=== PATIENT | female | born 1995 | race American Indian/Alaskan Native ===

== ENCOUNTER 2018-06-11 01:06 | Inpatient (IN) | payer OTHER ==
[2018-06-11] MEDS ORDERED: BRETHINE SUB-Q PRN (01:52)
[2018-06-11] MEDS ORDERED: XYLOCAINE 2% INFILTRATI ONE (01:52)
--- NOTE | 2018-06-11 01:59 | History and Physical Report ---
History of Present Illness Date of examination: 06/11/18 Date of admission: 06/11/18 01:41 Chief complaint: at 41 weeks, 1 day gestation. Active labor. History of present illness: 23 year old presents to L&D with complaint of contractions since yes terday. Patient denies vaginal bleeding or leaking of fluid. Patient states she has received care at [facility]; no records are available. Patient denies any complications with this . She states her EDC is 06/03/18. No labs are available. labs drawn at admission. 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 denies: smoking, alcohol abuse, prescription drug abuse, IV drug use - Obstetrical History Expected Date of Delivery: 06/03/18 Actual Gestation: 41 Week(s) 1 Day(s) : 4 Para: 2 Hx # Term Pregnancies: 3 Number of Pregnancies: 0 Spontaneous Abortions: 1 Induced : 0 Number of Living Children: 2 Medications and Allergies Allergies Allergy/AdvReac Type Severity Reaction Status Date / Time No Known Allergies Allergy Verified 06/11/18 01:27 Active Meds: Active Medications Ephedrine Sulfate (Ephedrine Sulfate) 10 mg IV Q2M PRN PRN Reason: Hypotension Ampicillin Sodium (Polycillin/Ns 2 Gm/100 Ml) 2 gm in 100 mls @ 100 mls/hr IV ONCE ONE; Protocol Stop: 06/11/18 02:51 Lactated Ringer's (Lactated Ringers) 1,000 mls @ 125 mls/hr IV DIRECT ALANIS Oxytocin/Sodium Chloride (Pitocin/Ns 20 Unit/1000ml Drip) 20 units in 1,000 mls @ 125 mls/hr IV DIRECT ALANIS Ampicillin Sodium (Ampicillin/Ns 1 Gm/50 Ml) 1 gm in 50 mls @ 100 mls/hr IV Q4HR ALANIS; Protocol Lidocaine (Xylocaine 2%) 20 ml INFILTRATI ONCE ONE Stop: 06/11/18 01:53 Terbutaline Sulfate (Brethine) 0.25 mg SUB-Q ONCE PRN PRN Reason: Hyperstimulation/Hypertonicity Review of Systems All systems: negative (labor) - Vital Signs Vital signs: Vital Signs Pulse Pulse Ox 72 100 06/11/18 01:17 06/11/18 01:17 Temp Pulse Resp BP Pulse Ox 84 100 06/11/18 01:32 06/11/18 01:32 - Physical Exam Abdomen: Positive: normal appearance, soft. Negative: distention, tenderness, guarding, rigidity Genitourinary (Female): Positive: normal external genitalia, normal perenium. Negative: perineal/vulvar lesions (no lesions seen on careful exam with bright light upon admission) Vagina: Positive: normal moisture Uterus: Positive: enlarged Anus/Rectum: Positive: normal perianal skin Extremities: Positive: normal. Negative: tenderness, edema - Obstetrical FHR: category 2 Uterine Contraction Monitor Mode: External Cervical Dilatation: 7 Cervical Effacement Percentage: 95 station: -1 Uterine Contraction Pattern: Regular Uterine Contraction Intensity: Moderate Results All other labs normal. Assessment and Plan A: at 41 weeks, 1 day gestation. Active labor. GBS unknown. P: Admit. GBS prophylaxis. Epidural if desired. Draw labs.
[2018-06-11] MEDS ORDERED: AMPICILLIN/NS 2 GM/100 ML 2 GM/100 ML BAG IV ONE ×2 (02:00→02:05)
[2018-06-11] MEDS ORDERED: PITOCin/NS 20 UNIT/1000ML DRIP 20 UNITS/1,000 ML BAG IV SCH (02:00)
[2018-06-11] MEDS ORDERED: SUBLIMAZE IV ONE (02:20)
[2018-06-11] MEDS ORDERED: SUBLIMAZE ONE (02:22)
[2018-06-11] MEDS: LACTATED RINGERS 1,000 ML IV SCH ×2 (02:24→03:25)
[2018-06-11 02:28] LABS: Hematocrit 30.7 % (30.3-42.9); Hemoglobin 10.1 gm/dl (10.1-14.3); Mean Corpuscular HGB Conc 33 % (30-34); Mean Corpuscular Volume 85 fl (79-97); Platelet Count 177 K/mm3 (140-440); Red Blood Count 3.62 M/mm3 (3.65-5.03); Red Cell Distribution Width 14.9 % (13.2-15.2)
[2018-06-11 03:06] LABS: Hematocrit 30.3 % (30.3-42.9); Hemoglobin 9.9 gm/dl (10.1-14.3); Mean Corpuscular HGB Conc 33 % (30-34); Mean Corpuscular Volume 86 fl (79-97); Platelet Count 173 K/mm3 (140-440); Red Blood Count 3.53 M/mm3 (3.65-5.03); Red Cell Distribution Width 15.2 % (13.2-15.2)
[2018-06-11 03:36] LABS: Hepatitis C Virus Antibody Non-Reactive (NonReactive)
[2018-06-11] MEDS ORDERED: XYLOCAINE 2%/ EPI 1:200,000 INFILTRATI ONE (03:43)
[2018-06-11] MEDS ORDERED: NARCAN 2 MG/2 ML IV PRN (03:54)
--- NOTE | 2018-06-11 03:54 | Anesthesia Consultation ---
Anesthesia Consult and Med Hx - Airway Anesthetic Teeth Evaluation: Good ROM Head & Neck: Adequate Mental/Hyoid Distance: Adequate Mallampati Class: Class I Intubation Access Assessment: Good - Pulmonary Exam CTA: Yes - Cardiac Exam Cardiac Exam: RRR - Pre-Operative Health Status ASA Pre-Surgery Classification: ASA2 Proposed Anesthetic Plan: Epidural - Pulmonary Hx Asthma: No COPD: No Hx Pneumonia: No - Cardiovascular System Hx Hypertension: No - Central Nervous System Hx Seizures: No Hx Psychiatric Problems: No - Endocrine Hx Renal Disease: No Hx End Stage Renal Disease: No Hx Hypothyroidism: No Hx Hyperthyroidism: No - Hematic Hx Anemia: No Hx Sickle Cell Disease: No - Other Systems Hx Alcohol Use: No
--- NOTE | 2018-06-11 03:54 | Anesthesia Day of Surgery ---
Anesthesia Day of Surgery - Day of Surgery Patient Examined: Yes Patient H&P Reviewed: Yes Patient is NPO: Yes Beta Blockers: No Cardiac Clearance: No Pulmonary Clearance: No Baldemar's Test: N/A
[2018-06-11] MEDS ORDERED: fentaNYL-BUPIV 2 MCG/ML-0.125% 200 MCG/100 ML BAG EPIDURAL SCH (04:00)
[2018-06-11] MEDS ORDERED: NACL 0.9% 1000 ML 1,000 ML ONE (04:02)
--- NOTE | 2018-06-11 04:30 | Event Note ---
Date: 06/11/18 Patient came in to L&D in advanced active labor. Cervix is now completely dilated and station of head is 0. Patient is comfortable as she has an epidural. Patient received amnioinfusion for variable FHR decelerations noted with SROM. FHR baseline 120-125 with moderate variability and early FHR decelerations. Contractions every 2-3 minutes. Uterus palpates soft between contractions.
[2018-06-11] MEDS ORDERED: NACL 0.9% 1000 ML 1,000 ML VG SCH (05:00)
[2018-06-11] MEDS ORDERED: LANSINOH TP PRN (05:19)
--- NOTE | 2018-06-11 05:19 | Procedure Note ---
OB Delivery Note - Delivery Date of Delivery: 06/11/18 Surgeon: DIPAK LUND Estimated blood loss: other (250 cc) - Vaginal Delivery presentation: vertex Delivery position: OA Intrapartum events: shoulder dystocia Delivery induction: none Delivery monitor: external FHT, external uterine, internal FHT, internal uterine Route of delivery: Delivery cord: nuchal cord, 3 umbilical vessels Episiotomy: midline Delivery repair: vicryl Anesthesia: epidural Delivery comments: of liveborn male infant OA over 2nd degree episiotomy. Prolonged and variable FHR deceleration just before delivery; Dr. Ceron called to delivery to expedite delivery but patient pushed well and head delivered spontaneously. Tight nuchal cord times 1 and shoulder cord. Shoulder dystocia noted. Jamel position instituted; attempted to deliver posterior arm but was unable to reach. Dr. Ceron was present for delivery and delivered baby's anterior shoulder. Baby placed briefly on maternal abdomen and 3 vessel cord was double clamped and cut. Baby taken to radiant warmer and evaluated by NICU team. Apgars 7/8. Weight 8 lbs. 6 oz. Time of 04:52. Spontaneous delivery of intact placenta and membranes by hoover mechanism. EBL 250 ml. Pitocin to IV fluids after delivery of placenta. Fundus firm and midline. Vaginal sweep negative. 2nd degree episiotomy repaired with 2-0 vicryl. Sponge count correct. Mother and baby stable in birthing room.
[2018-06-11 05:26] LABS: Amphetamine Screen,Urine PRESUMPTIVE NEGATIVE; Benzodiazepines Screen,Urine PRESUMPTIVE NEGATIVE; Cannabinoid Screen,Urine PRESUMPTIVE NEGATIVE; Cocaine Screen,Urine PRESUMPTIVE NEGATIVE; Methadone Screen,Urine PRESUMPTIVE NEGATIVE; Opiate Screen,Urine PRESUMPTIVE NEGATIVE
[2018-06-11] MEDS: IBUPROFEN PO SCH ×3 (05:59→23:24)
[2018-06-11] MEDS ORDERED: AMPICILLIN/NS 1 GM/50 ML 1 GM/50 ML BAG IV SCH (06:00)
[2018-06-11] MEDS ORDERED: SODIUM CHLORIDE FLUSH SYRINGE 10 ML IV NR (06:00)
[2018-06-11] MEDS: NORCO 5/325 PO PRN ×2 (08:00→21:23)
[2018-06-11] MEDS: TUCKS PAD TP PRN (08:01)
[2018-06-11] MEDS ORDERED: DULCOLAX PR PRN (10:00)
[2018-06-11 17:33] LABS: Hematocrit 28.3 % (30.3-42.9); Hemoglobin 9.1 gm/dl (10.1-14.3)
[2018-06-11] MEDS: COLACE PO SCH (21:23)
[2018-06-11] MEDS ORDERED: MILK OF MAGNESIA PO PRN (22:00)
[2018-06-12] MEDS: NORCO 5/325 PO PRN (03:18)
[2018-06-12] MEDS: IBUPROFEN PO SCH ×4 (05:28→18:19)
--- NOTE | 2018-06-12 11:38 | Progress Note ---
Assessment and Plan A: day 1. Anemia. P: Supplement with iron. Anticipate discharge tomorrow. Subjective - Subjective Date of service: 06/12/18 Principal diagnosis: day 1 S/P Interval history: day 1 S/P . Doing well. Patient reports small amount of lochia. Voiding without difficulty, passing gas, ambulating well. Tolerating a regular diet without nausea or vomiting. Patient reports: appetite normal, voiding normally, pain well controlled, flatus, ambulating normally, no dizzy ambulation, no nauseated [place]: doing well Objective - Vital Signs Latest vital signs: Vital Signs Temp Pulse Resp BP Pulse Ox 06/12/18 08:10 97.7 F 69 18 111/72 99 06/12/18 03:18 18 06/12/18 00:00 98.7 F 67 18 111/78 06/11/18 21:23 18 06/11/18 20:00 98.7 F 61 16 101/78 06/11/18 16:30 98.4 F 81 19 104/61 Intake and Output 06/11/18 06/12/18 06/12/18 23:59 07:59 15:59 Intake Total 600 300 120 Balance 600 300 120 Intake: Oral 300 120 Intake, Free Water 300 300 Other: Total, Intake Amount 300 120 # Voids Indwelling Catheter 2 Void 3 - Exam Cardiovascular: Present: Regular rate, Normal S1, Normal S2 Lungs: Present: Clear to auscultation Abdomen: Present: normal appearance, soft. Absent: distention, tenderness, guarding, rigidity Uterus: Present: normal, firm, fundal height below umbilicus. Absent: bogginess, tenderness Extremities: Present: normal. Absent: tenderness, edema - Labs Labs: Abnormal lab results 06/11/18 Range/Units 16:58 Hgb 9.1 L (10.1-14.3) gm/dl Hct 28.3 L (30.3-42.9) %
[2018-06-12] MEDS ORDERED: FEOSOL PO ONE (12:00)
[2018-06-12] MEDS: COLACE PO SCH ×2 (12:50→22:47)
[2018-06-13] MEDS: IBUPROFEN PO SCH ×3 (00:20→12:21)
[2018-06-13] MEDS: TUCKS PAD TP PRN (06:01)
[2018-06-13] MEDS: NORCO 5/325 PO PRN (06:01)
--- NOTE | 2018-06-13 07:02 | Progress Note ---
Assessment and Plan A: day 2 S/P . Anemia. P: Discharge patient to home today. Discussed with patient discharge instructions and warning signs. Patient is to continue iron supplements at home. Advised patient to avoid intercourse, lifting, and heavy housework for 6 weeks. Advised patient to follow up at [facility] in 6 weeks for visit and contraception. Patient voiced understanding of instructions. Subjective - Subjective Date of service: 06/13/18 Principal diagnosis: day 2 S/P Interval history: day 2 S/P . Doing well. Patient reports small amount of lochia. Voiding without difficulty, passing gas, ambulating well. Tolerating a regular diet without nausea or vomiting. Patient has no complaints. Desires discharge today. Patient reports: appetite normal, voiding normally, pain well controlled, flatus, ambulating normally, no dizzy ambulation, no nauseated [place]: doing well Objective - Vital Signs Latest vital signs: Vital Signs Temp Pulse Resp BP BP Pulse Ox 06/13/18 01:01 97.8 F 62 18 115/72 100 06/12/18 15:45 97.9 F 77 18 123/73 99 06/12/18 08:10 97.7 F 69 18 111/72 99 Intake and Output 06/12/18 06/12/18 06/13/18 15:59 23:59 07:59 Intake Total 360 360 Balance 360 360 Intake: Oral 360 Intake, Free Water 360 Other: Total, Intake Amount 120 # Voids Indwelling Catheter 1 Void 1 2 - Exam Abdomen: Present: normal appearance, soft. Absent: distention, tenderness, guarding, rigidity Uterus: Present: normal, firm, fundal height below umbilicus. Absent: bogginess, tenderness Extremities: Present: normal. Absent: tenderness, edema
--- NOTE | 2018-06-13 07:04 | Discharge Summary ---
Providers - Providers Date of Admission: 06/11/18 01:41 Date of discharge: 06/13/18 Attending physician: DUTCH STEWART MD Primary care physician: DUTCH STEWART MD Hospitalization Reason for admission: active labor Delivery: Episiotomy: midline Other procedures: none complications: none Discharge diagnosis: IUP at term delivered baby: male Pertinent studies: Labs Hospital course: Normal hospital course Condition at discharge: Good Disposition: DC-01 TO HOME OR SELFCARE - Discharge Diagnoses (1) Term delivered Status: Acute Plan - Provider Discharge Summary Activity: routine, no sex for 6 weeks, no heavy lifting 4 weeks, no strenuous exercise Diet: routine Instructions: routine Additional instructions: Continue taking your iron supplements at home. Call your doctor immediately for: * Fever > 100.5 * Heavy vaginal bleeding ( >1 pad per hour) * Severe persistent headache * Shortness of breath * Reddened, hot, painful area to leg or breast - Follow up plan Follow up: DUTCH STEWART MD [Primary Care Provider] - 6 Weeks
[2018-06-13] MEDS: COLACE PO SCH (12:21)
[2018-06-13 12:42] VITALS: BP 114/64
[2018-06-13] MEDS ORDERED: DERMOPLAST TP ONE (13:07)
== END 2018-06-13 13:15 | disposition home or self-care (01) | DRG 775 ==
LOC: TRG 01:06 → LD 01:41 → OB 06:44
PROVIDERS: ADMIT Obstetrics & Gynecology; ATTEND Obstetrics & Gynecology
PROC: 10E0XZZ Delivery of Products of Conception, External Approach (ICD-10-PCS; principal; 2018-06-11)
PROC: 0W8NXZZ Division of Female Perineum, External Approach (ICD-10-PCS; 2018-06-11)
PROC: 3E0R3BZ Introduction of Anesthetic Agent into Spinal Canal, Percutaneous Approach (ICD-10-PCS; 2018-06-11)
PROC: 00HU33Z Insertion of Infusion Device into Spinal Canal, Percutaneous Approach (ICD-10-PCS; 2018-06-11)
PROC: 3E0E7GC Introduction of Other Therapeutic Substance into Products of Conception, Via Natural or Artificial Opening (ICD-10-PCS; 2018-06-11)
DX: O66.0 Obstructed labor due to shoulder dystocia (principal); O76 Abnormality in fetal heart rate and rhythm complicating labor and delivery; O69.1XX0 Labor and delivery complicated by cord around neck, with compression, not applicable or unspecified; Z37.0 Single live birth; Z82.49 Family history of ischemic heart disease and other diseases of the circulatory system; Z3A.41 41 weeks gestation of pregnancy
CPT/HCPCS: 36415; 80307; 83036; 85014; 85018; 85027; 86592; 86706; 86762; 86803; 86850; 86900; 86901; 87806; G0378; J0290; J2590; J3010; J7030; J7120